=== PATIENT | male | born 1970 | race Caucasian/White ===

== ENCOUNTER 2016-07-28 22:47 | Observation (INO) | payer OTHER ==
[~2016-07-28] VITALS: Ht 177.8 cm; Wt 72.8 kg
[2016-07-29] MEDS ORDERED: HYDROCODON-ACE1 EAC2 PO (00:05)
[2016-07-29] MEDS ORDERED: COREG 3.125M3.125 MG PO (00:06)
[2016-07-29] MEDS ORDERED: ASPIR 8181 MG PO (00:06)
[2016-07-29] MEDS ORDERED: DIGOX125 MCG PO (00:07)
[2016-07-29] MEDS ORDERED: PLAVIX 75 MG TA75 MG PO (00:07)
[2016-07-29] MEDS ORDERED: DIGOX250 MCG PO (00:08)
[2016-07-29] MEDS ORDERED: FENOGLIDE40 MG PO (00:09)
[2016-07-29] MEDS ORDERED: NEURONTIN 400400 MG PO (00:09)
[2016-07-29] MEDS ORDERED: LANTUS100 UNIT/1 SQ (00:10)
[2016-07-29] MEDS ORDERED: NOVOLOG 10100 UNITS1 INJ (00:10)
[2016-07-29] MEDS ORDERED: IMDUR ER TAB 6060 MG PO (00:11)
[2016-07-29] MEDS ORDERED: ZESTRIL/PRINIVI10 MG PO (00:11)
[2016-07-29] MEDS ORDERED: PROTONIX 40 MG40 M1 PO (00:12)
[2016-07-29] MEDS ORDERED: SEROQUEL50 MG PO (00:12)
[2016-07-29] MEDS ORDERED: SIMVASTATIN20 MG PO (00:13)
[2016-07-29] MEDS ORDERED: RANEXA1000 MG PO (00:13)
[2016-12-13] MEDS ORDERED: ZANAFLEX4 MG PO (14:50)
== END 2016-07-29 19:15 | disposition home or self-care (01) ==
LOC: PROG CARE 22:47
PROVIDERS: ADMIT Internal Medicine
DX: R07.89 Other chest pain (principal); I25.10 Atherosclerotic heart disease of native coronary artery without angina pectoris; E11.9 Type 2 diabetes mellitus without complications; I10 Essential (primary) hypertension; E78.5 Hyperlipidemia, unspecified; I25.2 Old myocardial infarction; I48.0 Paroxysmal atrial fibrillation; K21.9 Gastro-esophageal reflux disease without esophagitis; F17.210 Nicotine dependence, cigarettes, uncomplicated; Z95.1 Presence of aortocoronary bypass graft; Z95.5 Presence of coronary angioplasty implant and graft; Z79.82 Long term (current) use of aspirin; Z79.4 Long term (current) use of insulin; Z79.02 Long term (current) use of antithrombotics/antiplatelets; Z79.899 Other long term (current) drug therapy; Z90.49 Acquired absence of other specified parts of digestive tract; Z88.8 Allergy status to other drugs, medicaments and biological substances
CPT/HCPCS: ECHO; 36415; 80061; 82550; 82553; 82962; 83036; 84484; 93005; 93306; 96374; 96376; C1769; G0378; G0379; J0461; J0583; J1644; J2250; J2270; J2405; J3010; J7030; Q9963

== ENCOUNTER 2017-01-07 23:20 | Inpatient (IN) | payer OTHER ==
[~2017-01-07] VITALS: Ht 177.8 cm; Wt 75.3 kg
[~2017-01-07 23:20] MED LIST: ASPIR 8181 MG PO; COREG 3.125M3.125 MG PO; DIGOX125 MCG PO; DIGOX250 MCG PO; FENOGLIDE40 MG PO; HYDROCODON-ACE1 EAC2 PO; IMDUR ER TAB 6060 MG PO; LANTUS100 UNIT/1 SQ; NEURONTIN 400400 MG PO; NOVOLOG 10100 UNITS1 INJ; PLAVIX 75 MG TA75 MG PO; PROTONIX 40 MG40 M1 PO; RANEXA1000 MG PO; SEROQUEL50 MG PO; SIMVASTATIN20 MG PO; ZANAFLEX4 MG PO; ZESTRIL/PRINIVI10 MG PO
[2017-01-08] MEDS ORDERED: HYDROCODON-ACE1 EAC2 PO (01:13)
[2017-01-08] MEDS ORDERED: LIPITOR80 MG PO (01:26)
[2017-01-08] MEDS ORDERED: ZEBETA 5 MG TAB5 MG PO (01:27)
[2017-01-08] MEDS ORDERED: BRILINTA90 MG PO (01:28)
[2017-01-08] MEDS ORDERED: AMBIEN5 MG PO (01:29)
[2017-01-08 04:19] LABS: HEMOGLOBIN 10.8 gm/dl (14.0-17.5); RED BLOOD COUNT 3.56 M/UL (4.20-5.50); WHITE BLOOD COUNT 4.5 K/UL (4.5-11.0)
[2017-01-08 04:37] LABS: BUN/CREATININE RATIO 18 (0-10)
[2017-01-09] MEDS ORDERED: RANEXA1000 MG PO (10:49)
[2017-01-09] MEDS ORDERED: IMDUR ER TAB 3030 MG PO (10:52)
== END 2017-01-09 11:56 | disposition home or self-care (01) | DRG 287 ==
LOC: CCU 23:20
PROVIDERS: ADMIT Hospitalist
PROC: 4A023N7 Measurement of Cardiac Sampling and Pressure, Left Heart, Percutaneous Approach (ICD-10-PCS; principal; 2017-01-08)
PROC: B2111ZZ Fluoroscopy of Multiple Coronary Arteries using Low Osmolar Contrast (ICD-10-PCS; 2017-01-08)
DX: I25.119 Atherosclerotic heart disease of native coronary artery with unspecified angina pectoris (principal); M06.9 Rheumatoid arthritis, unspecified; M54.5 Low back pain; G89.29 Other chronic pain; Z87.11 Personal history of peptic ulcer disease; E11.9 Type 2 diabetes mellitus without complications; K21.9 Gastro-esophageal reflux disease without esophagitis; Z95.1 Presence of aortocoronary bypass graft; I25.2 Old myocardial infarction; Z95.5 Presence of coronary angioplasty implant and graft; F17.210 Nicotine dependence, cigarettes, uncomplicated; E87.6 Hypokalemia; Z79.82 Long term (current) use of aspirin; Z79.899 Other long term (current) drug therapy; Z79.4 Long term (current) use of insulin
CPT/HCPCS: 36415; 80053; 80061; 82550; 82553; 82962; 83036; 84484; 85027; 93005; 99152; C1769; C9113; J1644; J2250; J2270; J3010; J7030; Q9963